=== PATIENT | male | born 1940 | race Caucasian/White ===

== ENCOUNTER 2017-09-21 11:24 | Inpatient (IN) | payer OTHER ==
[~2017-09-21] VITALS: Ht 175.3 cm; Wt 96.8 kg
--- NOTE | ~2017-09-21 | 2DMMODE ---
[facility] [address] [place] [address] 2 D/M-MODE ECHOCARDIOGRAM Name: ELHAM CORTEZ Room #: 216-P [facility] IN .R.#: [id number] Admission: 09/21/17 Attend Phys: Heather Macario Discharge: Date of : 44 Date of Service: 09/21/17 1619 Report #: [id number] THIS REPORT FOR: //name// APPROVED REPORT Study performed: 09/21/2017 14:32:48 EXAM: Comprehensive 2D, Doppler, and color-flow Echocardiogram Patient Location: Echo lab Room #: [facility] Status: routine BSA: 2.17 HR: 125 bpm BP: 91/60 mmHg Other Information Study Quality: Good Indications Atrial Fibrillation Hypertension/HDD 2D Dimensions RVDd: 46.18 mm LVEF(%): 75.70 (>50%) IVSd: 11.87 (7-11mm) LVOT Diam: 24.09 (18-24mm) LVDd: 46.55 mm PWd: 12.46 (7-11mm) Ascending Ao: 35.00 (22-36mm) LVDs: 25.88 (25-40mm) Aortic Root: 28.92 mm IVC: 11.00 mm Marina's LVEF: 75.70 % Volumes Left Atrial Volume (Systole) Single Plane 4CH: 109.48 mL Single Plane 2CH: 101.47 mL LA ESV Index: 51.00 mL/m2 Aortic Valve AoV Peak Gilemr.: 1.16 m/s AO Peak Gr.: 5.41 mmHg LVOT Max P.97 mmHg LVOT Max V: 0.86 m/s YAZ Vmax: 3.37 cm2 Pulmonary Valve PV Peak Gilmer.: 1.05 m/s PV Peak Gr.: 4.37 mmHg [facility] [place] [address] 2 D/M-MODE ECHOCARDIOGRAM Name: ELHAM CORTEZ Room #: 216-P [facility] IN ..#: [id number] Admission: 09/21/17 Attend Phys: Heather Macario Discharge: Date of : 44 Date of Service: 09/21/17 1619 Report #: [id number] Tricuspid Valve TR Peak Gilmer.: 2.27 m/s TR Peak Gr.: 20.60 mmHg PA Pressure: 26.00 mmHg Left Ventricle The left ventricle is normal size. There is normal LV segmental wall motion. Mild concentric left ventricular hypertrophy. The left ventricular systolic function is normal. The left ventricular ejection fraction is within the normal range. LVEF is 55-60%. This study is not technically sufficient to allow evaluation of the LV diastolic function due to atrial fibrillation. Right Ventricle The right ventricle is normal size. The right ventricular systolic function is normal. Atria Left atrium is dilated. Right atrium is dilated. Aortic Valve The aortic valve is normal in structure. Aortic valve is calcified. No aortic regurgitation is present. There is no aortic valvular stenosis. Mitral Valve The mitral valve is normal in structure. Mild mitral regurgitation. No evidence of mitral valve stenosis. Tricuspid Valve The tricuspid valve is normal in structure. There is trace tricuspid regurgitation. Estimated PAP 26 mmHg. Pulmonic Valve The pulmonary valve is normal in structure. There is no pulmonic valvular regurgitation. Great Vessels The aortic root is normal in size. IVC is normal in size and collapses >50% with inspiration. Pericardium There is no pericardial effusion. <Conclusion> The left ventricle is normal size. [facility] [address] [place] [address] 2 D/M-MODE ECHOCARDIOGRAM Name: ELHAM CORTEZ Gildardo Room #: 216-P [facility] IN ..#: [id number] Admission: 09/21/17 Attend Phys: Heather Macario Discharge: Date of : 44 Date of Service: 09/21/179 Report #: [id number] Mild concentric left ventricular hypertrophy. The left ventricular systolic function is normal. The right ventricle is normal size. Left atrium is dilated. Right atrium is dilated. There is no aortic valvular stenosis. Mild mitral regurgitation. There is trace tricuspid regurgitation. Estimated PAP 26 mmHg. <ELECTRONICALLY SIGNED> By: Aubrey Samuel MD 09/21/171618 18 18 Aubrey Samuel MD /DANE
--- NOTE | ~2017-09-21 | EKG ---
[place] [address] [facility] [employer] [place] [address] ELECTROCARDIOGRAM REPORT Name: DIEGO,ELHAM Ewing Room #: 216-P ADM IN M.R.#: [id number] Admission: 09/21/17 Attend Phys: Demetrio Yost MD Discharge: Date of : 44 Report #: [id number] THIS REPORT FOR: //name// [facility] ED Test Date: 2017-09-21 Test Time: 11:37:31 Pat Name: ELHAM CORTEZ Department: Room: Gender: M Test Borer: JAELYNFREDI : 1940 Requested By: Lisa Chand Order Number: [id number] MD: Aubrey Samuel Measurements Intervals [place] Rate: 128 P: -82 [place]: 123 QRS: -7 QRSD: 93 T: 56 QT: 284 QTc: 415 Interpretive Statements Sinus or ectopic atrial tachycardia Inferior infarct, old Compared to ECG 12/10/2008 14:28:54 Myocardial infarct finding now present Sinus bradycardia no longer present Atrial abnormality no longer present Electronically Signed On 09-21-2017 17:25:32 CDT by Aubrey Samuel [email or web address] <ELECTRONICALLY SIGNED> By: Aubrey Samuel MD 09/21/17 1725 1137 1137 Aubrey Samuel MD /EPI
--- NOTE | ~2017-09-21 | HC ---
[facility] [place] [address] CONSULTATION Name: DIEGOELHAM Gildardo Room #: 216-P [facility] IN ..#: [id number] Admission: 09/21/17 Attend Phys: Demetrio Yost MD Discharge: 09/24/17 Date of : 44 Report #: [id number] THIS REPORT FOR: //name// CC: Gagan Yost DATE OF SERVICE: 09/21/2017 HISTORY OF PRESENT ILLNESS: This is a 77-year-old male patient who was evaluated by me for an episode of garbled speech. 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 He became sweaty. He has severe garbled speech. It lasted a few minutes and then it resolved by itself. He had generalized weakness but not any focal weakness associated with this. REVIEW OF SYSTEMS: Indicate he has atrial fibrillation. His rate is being controlled by Cardiology. They have started him on Eliquis recently. Review of systems is positive for diabetes, but he does not become hypoglycemic. In fact, he is only on metformin. He does have a stable hypertension. His last HDL was low. Otherwise presently, he is not complaining of any new eye, ENT, respiratory, GI, , musculoskeletal, constitutional, dermatological, hematological, psychiatric, throat or allergic symptoms associated with present symptomatology. PAST MEDICAL HISTORY: Positive for atrial fibrillation and he has been recently started on Eliquis as I understand. FAMILY HISTORY: Negative for early age stroke. SOCIAL HISTORY: He does not smoke or drink any alcohol. PHYSICAL EXAMINATION: NEUROLOGICAL: Indicate that he is alert and responsive. His speech, concentration, fund of knowledge and memory is at his baseline. Cranial nerve examination 2 through 12 is unremarkable. The patient has symmetrical strength, sensation, reflexes and tone in all 4 extremities. Reflexes are difficult to check because he does have a brace on the left knee. I could not look at the fundus. There is no cerebellar sign. According to the nurses and the patient, he has been able to stand and that portion is back to his baseline. GENERAL: He is a well-developed individual who does not have any dysmorphic features of eyes, ears and face. HEENT: His vision and hearing looks adequate. CARDIAC: Examination showed atrial fibrillation. LUNGS: He does not have any respiratory difficulty or rhonchi on either side. EXTREMITIES: He has no edema, cyanosis or jaundice. He has some discoloration of his leg. VITAL SIGNS: His blood pressure is 113/69, pulse is 125 and temperature is [facility] [address] [place] [address] CONSULTATION Name: ELHAM CORTEZ Room #: 216-P [facility]#: [id number] Admission: 09/21/17 Attend Phys: Demetrio Yost MD Discharge: 09/24/17 Date of : 44 Report #: [id number] 97.8. LABORATORY DATA: Indicate a white count of 9.6 but his estimated GFR is only 25. He is going to see renal. His potassium is 5.3. RADIOLOGICAL DATA: He did have an MRI of the brain and MRA. Those were reviewed and they were unremarkable. IMPRESSION: 1. Transient ischemic attack. 2. He has no intracranial or extracranial disease. That would indicate that the symptoms were either because of vasospasms or because of systemic or cardiac problems. RECOMMENDATIONS: I do not believe there is any neurological intervention needed at this time. I discussed that aspect with him and if he is going to be on anticoagulation, he should continue that and his lipid profile is ordered and a few other blood tests are ordered. I will get an EEG just because no other cause has been found, but I do not have any further recommendations and he need to take care of his vascular risk factor, his atrial fibrillation and those can be checked. Thank you very much for this referral. I do not plan to follow up this patient, but please let me know if he has any further symptoms and I will be happy to follow him up. <ELECTRONICALLY SIGNED> By: Clarence Lynch MD 09/24/17 1422 1820 2215 Clarence Lynch MD /nt
--- NOTE | ~2017-09-21 | TEE ---
[facility] [place] [address] TRANSESOPHAGEAL ECHOCARDIOGRAM Name: ELHAM CORTEZ Room #: 216-P [facility] IN M.R.#: [id number] Admission: 09/21/17 Attend Phys: Heather Macario Discharge: Date of : 44 Date of Service: 09/23/17 0940 Report #: [id number] THIS REPORT FOR: //name// APPROVED REPORT Study performed: 09/23/2017 08:39:40 EXAM: Comprehensive 2D, Doppler, and color-flow Echocardiogram Patient Location: [facility] Room #: 216 Status: routine BSA: 2.12 HR: 134 bpm BP: 132/102 mmHg Rhythm: Atrial Fibrillation Other Information Study Quality: Good Indications Atrial Fibrillation Cardioversion Procedure After obtaining informed consent, patient underwent transesophageal echo in the [employer]. Type of Sedation : Conscious Sedation Sedation was administered by Ebony Wills RN. Sedation was achieved intravenously with: Versed (6) Fentanyl (75) Transesophageal probe was inserted and advanced into esophagus without difficulty by Major Singh MD. The DARYN was performed without complications. Synchronized Cardioversion acheived with 20 Joules after 1 attempt(s). Rhythm following Synchronized Cardioversion: Normal Sinus Rhythm Throughout the procedure, the blood pressure, pulse oximetry, cardiac rhythm, and rate were monitored. The patient tolerated the procedure without adverse effects. Recovery from conscious sedation was uneventful and vital signs were stable. Left Ventricle The left ventricle is normal size. Concentric left ventricular [facility] [address] [place] [address] TRANSESOPHAGEAL ECHOCARDIOGRAM Name: ELHAM CORTEZ Room #: 216-P [facility] IN ..#: [id number] Admission: 09/21/17 Attend Phys: Heather Macario Discharge: Date of : 44 Date of Service: 09/23/17 0940 Report #: [id number] hypertrophy is noted. Left ventricular systolic function is normal. LVEF is 55%. Right Ventricle The right ventricle is normal size. The right ventricular systolic function is normal. Atria Left atrium is dilated. No thrombus is visualized in the left atrium or appendage. No shunting by contrast bubble injection Right atrium is dilated. Aortic Valve The aortic valve is sclerotic. No aortic regurgitation is present. There is no aortic valvular stenosis. Mitral Valve The mitral valve is normal in structure. No mitral regurgitation. Tricuspid Valve The tricuspid valve is normal in structure. Trace tricuspid regurgitation. Pulmonic Valve The pulmonary valve is normal in structure. Great Vessels The aortic root is normal in size. Pericardium There is no pericardial effusion. <Conclusion> Left ventricular systolic function is normal. LVEF is 55%. Both atria are mildly dilated. No thrombus is visualized in the left atrium or appendage. No shunting by contrast bubble injection The aortic valve is sclerotic. No aortic regurgitation or stenosis The mitral valve is normal in structure. No mitral regurgitation. There is no pericardial effusion. Mild aortic atherosclerosis [facility] [address] [place] [address] TRANSESOPHAGEAL ECHOCARDIOGRAM Name: ELHAM CORTEZ Room #: 216-P [facility] IN ..#: [id number] Admission: 09/21/17 Attend Phys: Heather Macario Discharge: Date of : 44 Date of Service: 09/23/17939 Report #: [id number] Successful cardioversion of atrial flutter with single synchronous shock <ELECTRONICALLY SIGNED> By: Major Singh MD, FACC 09/23/17939 9 9 Major Singh MD, FACC /INF
--- NOTE | ~2017-09-21 | EKG ---
[address] [address] ELECTROCARDIOGRAM REPORT Name: DIEGOELHAM MILLER Room #: 216-P ADM IN M.R.#: [id number] Admission: 09/21/17 Attend Phys: Demetrio Yost MD Discharge: Date of : 44 Report #: [id number] THIS REPORT FOR: //name// [facility] Test Date: 2017-09-23 Test Time: 09:29:30 Pat Name: ELHAM CORTEZ Department: Room: 216 P Gender: M Shot Peening Operator: Juan WALDEN : 1940 Requested By: Major Singh Order Number: [id number] MD: Ralph Faust Measurements Intervals [place] Rate: 60 P: 10 CT: 180 QRS: -10 QRSD: 91 T: 51 QT: 365 QTc: 365 Interpretive Statements Sinus rhythm Compared to ECG 09/21/2017 11:37:31 Myocardial infarct finding no longer present Electronically Signed On 09-23-2017 13:08:32 CDT by Ralph Faust [email or web address] <ELECTRONICALLY SIGNED> By: Ralph Faust MD 09/23/17 1308 0929 0929 Ralph Faust MD /TINY
--- NOTE | ~2017-09-21 | H ---
[facility] [place] [address] HISTORY AND PHYSICAL Name: ELHAM CORTEZ Room #: 216-P ADM IN M.R.#: [id number] Admission: 09/21/17 Attend Phys: Demetrio Yost MD Discharge: Date of : 44 Report #: [id number] THIS REPORT FOR: //name// CC: Gagan Yost DATE OF SERVICE: 09/21/2017 CHIEF COMPLAINT: Slurred speech and aphasia. HISTORY OF PRESENT ILLNESS: The patient is a 77-year-old male with history of atrial fibrillation status post ablation in 2010, was referred from Dr. Faust's office for a possible stroke. The patient had ablation in 2010 and has been apparently doing well until a week ago when he started having severe palpitation. The patient was referred by Dr. Leal to Dr. Faust's office for evaluation. The patient was on Cardizem 360 mg once a day as needed prior to 1 week. Apparently, he has been taking his Cardizem 360 mg every day. He has also been on Eliquis for his AFib. In Dr. Faust's office, when Dr. Faust entered the room, the patient had slurred speech. The episode lasted for around 10 minutes and it resolved on arrival to the Emergency Room. The patient has been asymptomatic since then. His CAT scan of the brain showed no acute abnormality, no visual disturbance. The patient denies any focal numbness or weakness of the extremity. The patient was started on Eliquis around 4 days ago. PAST MEDICAL HISTORY: Significant for hypertension, diabetes. History of atrial fibrillation status post ablation in 2010. No history of known coronary artery disease, no CVA, no peptic ulcer disease, no bleeding disorder, no cancer. PAST SURGICAL HISTORY: History of cardiac catheterization in 2007, history of left rotator cuff surgery, history of cholecystectomy. ALLERGIES: No known drug allergies. SOCIAL HISTORY: No smoking, alcohol abuse, or illicit drug abuse. FAMILY HISTORY: Significant for hypertension. No diabetes. REVIEW OF SYSTEMS: CONSTITUTIONAL: No fever or chills. No weight loss or weight gain. EYES: No change in vision. THROAT: Denies any sore throat. CARDIOVASCULAR: Palpitation. No chest pain, no shortness of breath, no dizziness. RESPIRATORY: No cough or expectoration. [facility] [address] [place] [address] HISTORY AND PHYSICAL Name: ELHAM CORTEZ Gildardo Room #: 216-P [facility] IN .R.#: [id number] Admission: 09/21/17 Attend Phys: Demetrio Yost MD Discharge: Date of : 44 Report #: [id number] GASTROINTESTINAL: No nausea or vomiting. GENITOURINARY: No dysuria, hematuria. NEUROLOGIC: No focal numbness or weakness of the extremity. The 12-point review of system is negative other than the positive and negative dictated in the history of present illness and the review of system. PHYSICAL EXAMINATION: VITAL SIGNS: Reveal blood pressure 91/60, heart rate of 110 per minute, afebrile. GENERAL: The patient is awake, alert, not in acute respiratory distress. EYES: Pupils equal, reactive to light. Nonicteric conjunctivae. THROAT: Appears normal. NECK: Supple. JVD noted. No bruit, no lymphadenopathy. CARDIOVASCULAR SYSTEM: S1, S2. Tachycardic, irregularly irregular. CHEST: Bilateral air entry present. Clear on auscultation. ABDOMEN: Soft, bowel sounds present, no mass, no organomegaly, no tenderness. PERIPHERY: No pedal edema. No calf tenderness. Dorsalis pedis 1+. NEUROLOGICAL: Pupils equal, reactive to light. Extraocular movements intact. No facial asymmetry noted. Power is 5/5 in upper and lower extremity, no obvious sensory deficit noted. LABORATORY DATA: Reviewed. EKG showed atrial flutter/AFib, no significant ST segment T-wave changes. CT of the brain showed no acute intracranial process, mild supratentorial white matter disease suggestive of small vessel disease. BUN and creatinine are elevated at 41 and 2.5. Potassium is 5.3. Glucose is 142. White count is normal with normal hemoglobin and hematocrit and platelets. Chest x-ray is pending. ASSESSMENT AND PLAN: 1. Episode of slurred speech that has resolved, likely transient ischemic attack. The patient will be admitted to telemetry floor. We will have serial neurological evaluation. We will obtain MRI of the brain, echocardiogram. The patient apparently had a carotid Doppler done last week. We will try to obtain the report. Dr. Lynch has been consulted. 2. Atrial fibrillation with rapid ventricular response, presently on a Cardizem drip. The patient also was given a dose of digoxin in the Emergency Room. Cardiology has been consulted. We will obtain echocardiogram. We will check on his TSH level. 3. Deep venous thrombosis prophylaxis. The patient is on Eliquis for his atrial fibrillation. 4. Renal failure, most likely chronic kidney disease. The patient is not aware about any kidney disease in the past. We will try to obtain his lab results from Dr. Mercedes's office, which were done in 07/2017. We will also consult cuffing machine operator. 5. We will obtain a UA. 6. Diabetes. We will hold off metformin secondary to his renal failure. We [address] [address] HISTORY AND PHYSICAL Name: ELHAM CORTEZ Room #: 216-P [facility] IN ..#: [id number] Admission: 09/21/17 Attend Phys: Demetrio Yost MD Discharge: Date of : 44 Report #: [id number] him on Accu-Cheks and monitor his blood sugar. 7. Mild hyperkalemia, potassium of 5.3. We will repeat in the morning. 8. History of dyslipidemia, on statin. We will continue the statin, check his lipids in the morning. <ELECTRONICALLY SIGNED> By: Demetrio Yost MD 09/22/17 1300 1346 1509 Demetrio Yost MD /nt
--- NOTE | ~2017-09-21 | EEG ---
[facility] [place] [address] ELECTROENCEPHALOGRAM Name: ELHAM CORTEZ Room #: 216-P [facility] IN M.R.#: [id number] Admission: 09/21/17 Attend Phys: Demetrio Yost MD Discharge: 09/24/17 Date of : 44 Report #: [id number] THIS REPORT FOR: //name// CC: Gagan Yost DATE OF SERVICE: 09/22/2017 This patient had an episode of speech difficulty. EEG was done by placing the electrode by standard 10-20 system of electrode placement. Both referential and sequential montages were used for recording. Background activity in this patient's EEG is about 10-11 Hz and 30 microvolts. The patient went to sleep that is associated with bilateral slowing and vertex sharp waves. Photic stimulation is unremarkable. Throughout the record, no active epileptiform activity was noticed. IMPRESSION: This patient's EEG is within normal limit. Thank you very much for this referral. <ELECTRONICALLY SIGNED> By: Clarence Lynch MD 09/24/17 1424 1438 1446 Clarence Lynch MD /nt
--- NOTE | ~2017-09-21 | EKG ---
[place] [address] [facility] [place] [address] ELECTROCARDIOGRAM REPORT Name: DIEGOELHAM MILLER Room #: 216-P ADM IN M.R.#: [id number] Admission: 09/21/17 Attend Phys: Demetrio Yost MD Discharge: Date of : 44 Report #: [id number] THIS REPORT FOR: //name// [facility] Test Date: 2017-09-24 Test Time: 06:38:33 Pat Name: ELHAM CORTEZ Department: Room: 216 P Gender: M Internal Controls Manager: GR : 1940 Requested By: Maria Luz Dela Cruz Order Number: [id number] MD: Major Singh Measurements Intervals [place] Rate: 75 P: -24 [place]: 186 QRS: -22 QRSD: 99 T: 33 QT: 359 QTc: 401 Interpretive Statements Sinus rhythm Borderline left axis deviation Baseline wander in lead(s) V4,V6 Compared to ECG 09/23/2017 09:29:30 No significant changes Electronically Signed On 09-24-2017 8:19:48 CDT by Major Singh [email or web address] <ELECTRONICALLY SIGNED> By: Major Singh MD, [facility] 09/24/17 0819 7 Major Singh MD, [facility] /EPI
--- NOTE | ~2017-09-21 | HC ---
[facility] [place] [address] CONSULTATION Name: ELHAM CORTEZ Room #: 216-P [facility] IN .R.#: [id number] Admission: 09/21/17 Attend Phys: Demetrio Yost MD Discharge: Date of : 44 Report #: [id number] THIS REPORT FOR: //name// CC: Gagan Mercedes Demetrio Yost DATE OF SERVICE: 09/21/2017 NEPHROLOGY CONSULTATION ATTENDING PHYSICIAN: Demetrio Yost MD REASON FOR CONSULTATION: Elevated creatinine. HISTORY OF PRESENT ILLNESS: A 77-year-old gentleman, he has had diabetes and recurrent atrial fibrillation in 2010, he underwent an ablation. As far as he knows, he has had normal renal function until an episode of septic gallbladder at [facility] 2 years ago, which did not require dialysis, but it was a prolonged bout of acute renal failure eventually as far as the patient knows his kidney function normalized. The patient has now had recurrence of atrial arrhythmia with difficulty in controlling rate and he was referred today for another ablation while visiting with the electrophysiology court bailiff, developed garbled speech, lasted only 5 minutes and resolved, felt to be a TIA. He was admitted and his creatinine was up to 2.5 with a BUN of 41. We have no old records of his creatinine. Potassium was 5.3. HOME MEDICATIONS: Include carvedilol 25 mg b.i.d., Eliquis 5 mg b.i.d., metformin 1000 mg b.i.d., Myrbetriq 50 mg daily, aspirin 81 mg daily, lisinopril/hydrochlorothiazide 20/12.5 one tab daily, simvastatin 20 mg daily, and fenofibrate 150 mg daily. SOCIAL HISTORY: No cigarettes or alcohol use. REVIEW OF SYSTEMS: GENERAL: He has been feeling well. EYES: No problem with his vision. ENT: Hearing okay, swallows okay. No mouth sores. ENDOCRINE: Positive for diabetes. RESPIRATORY: No shortness of breath, pleuritic pain, hemoptysis, cough. CARDIAC: No chest pain. He does have the palpitations. No history of heart failure. GASTROINTESTINAL: No nausea, vomiting or diarrhea. GENITOURINARY: He does have some difficulty with urination, some frequency. NEUROLOGIC: He has got the episode as above, no other. No symptoms of [facility] [address] [facility] [address] CONSULTATION Name: ELHAM CORTEZ Room #: 216-P [facility] IN ..#: [id number] Admission: 09/21/17 Attend Phys: Demetrio Yost MD Discharge: Date of : 42 Report #: [id number] peripheral neuropathy. SKIN: No skin rash. FAMILY HISTORY: Positive for lung cancer. PHYSICAL EXAMINATION: GENERAL: This is a reasonably well-appearing gentleman, in good spirits, seen in his hospital bed. SKIN: Unremarkable except for some dry skin over the yi areas bilaterally. SKELETAL: Well developed, well nourished, nonobese. HEENT: Extraocular movements are full. Vision intact with corrective lenses. No scleral icterus. Hearing intact. Mucous membranes moist. Tongue, buccal mucosa benign. NECK: Neck veins supple. Neck veins are not distended. CHEST: Shows crackles at the lung bases. HEART: Regular, but very rapid. ABDOMEN: Soft and nontender. EXTREMITIES: Show no edema. Distal pulses are somewhat diminished. LABORATORY DATA: Creatinine is 2.5, potassium 5.3, BUN 41. Hemoglobin 15.2. ASSESSMENT AND PLAN: 1. Elevated creatinine. This is certainly due to his atrial arrhythmias, it could be superimposed on some prior renal damage, particularly as regards his previous episode of septic gallbladder and acute renal failure at [facility] 2 years ago. In any event, urinalysis, urine protein studies, renal sonography and paraprotein studies are all ordered for completeness. I do believe that if anything he is tending towards volume overload, he has already been getting some IV fluids, I am a little concerned about that, we will cut those back before he goes into a heart failure. He has had bolus of saline. He got saline I think at least a liter on top of the 500 mL bolus. Now, I believe the IV fluids have been appropriately stopped and he is of course being treated for rate control, etc. and then worked up for possible transient ischemic attack. 2. Atrial fibrillation/flutter with rapid ventricular response and low blood pressure. 3. Diabetes mellitus. 4. Previous history of septic gallbladder with acute tubular necrosis. By: [id number] 2346 Elmer Pitts MD /nt
[2017-09-21 11:27] VITALS: BP 101/72
[2017-09-21] MEDS ORDERED: ELIQUIS5 MG PO (11:34)
[2017-09-21 11:57] LABS: HEMOGLOBIN 15.2 gm/dL (14.0-18.0); MCH 32.6 pg (26.0-34.0); MCHC 34.6 g/dL (28.0-37.0); MCV 94.3 fL (80.0-100.0); PLATELET COUNT 261 thou/uL (150-400); RBC 4.67 mil/uL (4.50-6.00); WBC 9.6 thou/uL (4.0-11.0)
[2017-09-21 12:04] LABS: CALCIUM 9.2 mg/dL (8.5-10.1); CREATININE 2.5 mg/dL (0.7-1.3); POTASSIUM 5.3 mmol/L (3.5-5.1)
[2017-09-21] MEDS ORDERED: COREG25 MG PO (12:24)
[2017-09-21 12:43] VITALS: BP 91/60
[2017-09-21] MEDS ORDERED: METFORMIN HCL500 MG PO (12:43)
[2017-09-21] MEDS ORDERED: MYRBETRIQ50 MG PO (12:43)
[2017-09-21] MEDS ORDERED: ZESTORETIC 20-1 EAC3 PO (12:44)
[2017-09-21] MEDS ORDERED: ASPIR 8181 MG PO (12:44)
[2017-09-21] MEDS ORDERED: ZOCOR20 MG PO (12:45)
[2017-09-21] MEDS ORDERED: LIPOFEN150 MG PO (12:45)
[2017-09-21 12:57] LABS: ATYPICAL LYMPHS 5 %
[2017-09-21 13:50] VITALS: BP 91/47
[2017-09-21 15:48] VITALS: BP 106/63
[2017-09-21 19:49] LABS: URINE BILIRUBIN NEGATIVE (Negative); URINE BLOOD 2+ (Negative); URINE CLARITY CLEAR; URINE COLOR YELLOW; URINE GLUCOSE-RANDOM* NEGATIVE (Negative); URINE KETONES NEGATIVE (Negative); URINE LEUKOCYTES-REFLEX NEGATIVE (Negative); URINE NITRITE-REFLEX NEGATIVE (Negative); URINE PROTEIN (DIPSTICK) NEGATIVE (Negative); URINE UROBILINOGEN 0.2 E.U./dl (0.2-1.0)
[2017-09-21 20:00] LABS: CASTS None Seen /LPF (None Seen); MUCUS 0-3 Light strn/LPF (None Seen); SQUAMOUS 0-3 Few /LPF (0-3); URINE RBC 3-10 Few /HPF (0-2); URINE WBC-REFLEX 0-5 Rare /HPF (0-5)
[2017-09-21 20:01] LABS: BACTERIA-REFLEX 1-9 Few /HPF (None Seen); CRYSTALS None Seen /LPF (None Seen)
[2017-09-21 20:03] LABS: PROT/CREAT RATIO 0.1; URINE CREATININE-RANDOM* 98.6 mg/dL; URINE PROTEIN-RANDOM* 12.5 mg/dL (<11.9)
[2017-09-21 20:05] VITALS: BP 96/57
[2017-09-22] VITALS (7 sets, daily range): BP systolic 97–133; BP diastolic 60–75
[2017-09-22 04:07] LABS: HEMATOCRIT 40.6 % (42.0-52.0); HEMOGLOBIN 13.9 gm/dL (14.0-18.0); MCH 32.2 pg (26.0-34.0); MCHC 34.3 g/dL (28.0-37.0); MCV 93.9 fL (80.0-100.0); PLATELET COUNT 196 thou/uL (150-400); RBC 4.33 mil/uL (4.50-6.00); RDW 13.1 % (10.5-14.5); WBC 7.3 thou/uL (4.0-11.0)
[2017-09-22 04:19] LABS: ANION GAP 9 mmol/L (7-16); BUN 40 mg/dL (7-18); CALCIUM 8.9 mg/dL (8.5-10.1); CHLORIDE 106 mmol/L (98-107); CO2 25 mmol/L (21-32); GLUCOSE 102 mg/dL (74-106); MAGNESIUM 1.5 mg/dL (1.8-2.4); POTASSIUM 4.5 mmol/L (3.5-5.1); SODIUM 140 mmol/L (136-145)
[2017-09-22 04:20] LABS: SERUM ASSESSMENT Clear
[2017-09-22 04:39] LABS: CHOLESTEROL 91 mg/dL (<200); HDL CHOLESTEROL 19 mg/dL (>40); LDL CHOLESTEROL 38 mg/dL (<100); TC:HDL 4.8 Ratio (Not establshd); TRIGLYCERIDE 172 mg/dL (<150); VLDL 34 mg/dL (<40)
[2017-09-22 07:17] LABS: ABSOLUTE NEUTROPHILS 3.9 thou/uL (1.4-8.2)
[2017-09-23] VITALS (7 sets, daily range): BP systolic 122–142; BP diastolic 65–102
[2017-09-23 03:25] LABS: ALBUMIN 3.7 g/dL (3.4-5.0); CALCIUM 8.7 mg/dL (8.5-10.1); CREATININE 1.6 mg/dL (0.7-1.3); MAGNESIUM 1.4 mg/dL (1.8-2.4); PHOSPHORUS 3.1 mg/dL (2.5-4.9); POTASSIUM 4.2 mmol/L (3.5-5.1)
[2017-09-24 03:34] VITALS: BP 142/75
[2017-09-24 05:04] LABS: CALCIUM 8.7 mg/dL (8.5-10.1); CREATININE 1.4 mg/dL (0.7-1.3); MAGNESIUM 1.5 mg/dL (1.8-2.4)
[2017-09-24 07:50] VITALS: BP 158/93
[2017-09-24] MEDS ORDERED: ALTACE5 MG PO (08:25)
[2017-09-24] MEDS ORDERED: FLECAINIDE ACET50 M1 PO (08:25)
[2017-09-24] MEDS ORDERED: CARVEDILOL12.5 MG PO (08:25)
[2017-09-24] MEDS ORDERED: JANUVIA50 MG PO (10:46)
[2017-09-24 11:02] VITALS: BP 158/93
== END 2017-09-24 13:35 | disposition home or self-care (01) | DRG 682 ==
LOC: ER 11:24 → EROBS 12:30 → 2N 12:30 → ENTRNSPT 09-24 11:48 → EDTRNSPTSTS 09-24 11:50 → 2N 09-24 13:35
PROVIDERS: Emergency Medicine; Hospitalist; Internal Medicine; Internal Medicine Nephrology
PROC: 4A10X4Z Monitoring of Central Nervous Electrical Activity, External Approach (ICD-10-PCS; 2017-09-21)
PROC: B24BZZ4 Ultrasonography of Heart with Aorta, Transesophageal (ICD-10-PCS; principal; 2017-09-23)
PROC: 5A2204Z Restoration of Cardiac Rhythm, Single (ICD-10-PCS; principal; 2017-09-23)
DX: N17.9 Acute kidney failure, unspecified (principal); E43 Unspecified severe protein-calorie malnutrition; G45.9 Transient cerebral ischemic attack, unspecified; I48.92 Unspecified atrial flutter; I95.9 Hypotension, unspecified; E87.5 Hyperkalemia; E78.5 Hyperlipidemia, unspecified; I48.0 Paroxysmal atrial fibrillation; I25.10 Atherosclerotic heart disease of native coronary artery without angina pectoris; N18.9 Chronic kidney disease, unspecified; E11.22 Type 2 diabetes mellitus with diabetic chronic kidney disease; I12.9 Hypertensive chronic kidney disease with stage 1 through stage 4 chronic kidney disease, or unspecified chronic kidney disease; E86.0 Dehydration; Z90.49 Acquired absence of other specified parts of digestive tract; Z79.01 Long term (current) use of anticoagulants; Z68.31 Body mass index [BMI] 31.0-31.9, adult; Z79.82 Long term (current) use of aspirin; Z79.84 Long term (current) use of oral hypoglycemic drugs; Z79.899 Other long term (current) drug therapy; Z80.1 Family history of malignant neoplasm of trachea, bronchus and lung; Z82.49 Family history of ischemic heart disease and other diseases of the circulatory system
CPT/HCPCS: 10194

== ENCOUNTER → 2017-11-09 | Outpatient (CLI) | payer OTHER ==
[~2017-11-09] MED LIST: ALTACE5 MG PO; ASPIR 8181 MG PO; CARVEDILOL12.5 MG PO; COREG25 MG PO; ELIQUIS5 MG PO; FLECAINIDE ACET50 M1 PO; JANUVIA50 MG PO; LIPOFEN150 MG PO; METFORMIN HCL500 MG PO; MYRBETRIQ50 MG PO; ZESTORETIC 20-1 EAC3 PO; ZOCOR20 MG PO
[2017-11-09 08:21] LABS: HEMATOCRIT 46.3 % (42.0-52.0); HEMOGLOBIN 15.4 gm/dL (14.0-18.0); MCHC 33.2 g/dL (28.0-37.0); MCV 96.4 fL (80.0-100.0); RBC 4.8 mil/uL (4.50-6.00); RDW 13.4 % (10.5-14.5); WBC 6.9 thou/uL (4.0-11.0)
[2017-11-09 08:36] LABS: CALCIUM 9.6 mg/dL (8.5-10.1); CREATININE 1.4 mg/dL (0.7-1.3); POTASSIUM 4.2 mmol/L (3.5-5.1)
== END ==
LOC: CAT 07:47
PROVIDERS: Internal Medicine Cardiovascular Disease
DX: I25.10 Atherosclerotic heart disease of native coronary artery without angina pectoris (principal); I48.91 Unspecified atrial fibrillation; N20.0 Calculus of kidney; M47.814 Spondylosis without myelopathy or radiculopathy, thoracic region; R59.0 Localized enlarged lymph nodes

== ENCOUNTER 2017-11-15 06:28 | Observation (INO) | payer OTHER ==
[~2017-11-15] VITALS: Ht 182.9 cm; Wt 95.3 kg
--- NOTE | ~2017-11-15 | P ---
[facility] [place] [address] PROCEDURE REPORT Name: ELHAM CORTEZ Room #: REG [facility]#: [id number] Admission: 11/15/17 Attend Phys: Ralph Faust MD Discharge: Date of : 42 Report #: [id number] THIS REPORT FOR: //name// CC: Gagan Faust PREOPERATIVE DIAGNOSIS: Atrial fibrillation. POSTOPERATIVE DIAGNOSIS: Atrial fibrillation. HISTORY OF PRESENT ILLNESS: The patient is a 77-year-old with history of AFib, status post prior ablation at [facility] about 7 years ago, who has had clinical recurrence. He is here for repeat ablation. PROCEDURES PERFORMED: 1. AFib ablation, CPT code 57017. 2. 3D mapping EP, CPT code 47916. 3. Intracardiac echo, CPT code 78042. ANESTHESIA: The patient underwent general anesthesia with no anesthesia related complications. PROCEDURE: The patient underwent informed consent where we discussed the details of the procedure including the risks, which include, but not limited to bleeding, vascular damage, cardiac perforation as well as stroke or NE. The patient understood these risks and is willing to proceed. The patient was brought to the EP laboratory in a fasting and sedated state and prepped and draped in a sterile fashion. Next, I obtained access to the bilateral femoral veins placing two 8-Welsh short sheaths in the right femoral vein and a 7-Welsh and 9-Welsh short sheath in the left femoral vein using the modified Seldinger technique. Next, under fluoroscopy, I placed a decapolar catheter easily in the coronary sinus and an ice catheter in the right atrium. Next, I created a detailed 3D geometry of the left atrium using CartoSound. There was evidence of a left superior and left inferior pulmonary vein as well as a right superior and right inferior pulmonary vein. Of note, the interatrial septum appeared to be thickened. Next, the patient was systemically heparinized and a transseptal was attempted using an SL1 sheath and a [place] needle. On my first three attempts using the [place] needle, the needle appeared to cross into the left atrium, but I could not advance my dilator. The septum was thickened and probably calcified. I therefore decided to perform a transseptal at the higher part of the interatrial septum. Performing the transseptal at this site, I was able to cross with the SL1 sheath into the left atrium. Then, I placed a Lasso catheter in the left atrium and we obtain baseline measurements of the left atrium. It appeared that the left superior, left inferior and the right inferior pulmonary veins have reconnected, the right superior remained isolated from prior ablation. Next, I attempted to exchange the SL1 sheath for the [address] [address] PROCEDURE REPORT Name: ELHAM CORTEZ Room #: REG [facility] Marlon#: [id number] Admission: 11/15/17 Attend Phys: Ralph Faust MD Discharge: Date of : 42 Report #: [id number] cryosheath, but this would not cross despite trying to turn it through the septum. As such, we exchanged back for the SL1 sheath and then advanced a Cordis 7 mm x 4 cm balloon over the wire across the interatrial septum and we balloon dilated the septum. I then exchanged the SL1 for the cryosheath and this now easily crossed into the left atrium. Next, I placed the cryoballoon into the left atrium. We started by isolating the left superior pulmonary vein. Of note, this had somewhat of a strange anatomy as I could not really get the wire very deep down into it. This was clearly the left superior pulmonary vein and not the appendage. This vein did isolate after one freeze. This freeze was 4 minutes' duration. I then turned my attention to the left inferior pulmonary vein. I performed two 4-minute freezes in this vein and the vein isolated within 47 seconds of the second freeze. I then turned my attention to the right superior pulmonary vein and as I discussed this was already isolated, but I decided to re-isolate the ostium of this vessel and the sharmaine. I performed a 2-minute freeze and a 140-second freeze. I then turned my attention to the right inferior pulmonary vein, which was still connected. I performed a 4-minute freeze and a 3-minute freeze and this vein was isolated. Post-ablation, I placed the Lasso catheter back to the left atrium and we created a detailed voltage map, which showed that we had created a wide circumferential ablation of the left atrium. A post-ablation EP study was performed and AV block was noted at 340 milliseconds, his sinus node recovery time was within normal limits, his AV orlin ERP was at 310 milliseconds at a [address] cycle length with double atrial extrastimuli, the patient would have some bursts of atrial fib/atrial flutter that would last about 5-10 seconds, but then terminate. As such, the procedure was concluded. Pre-ablation, the patient was in sinus rhythm with a sinus cycle length of 945 milliseconds, AK interval 180 milliseconds, QRS duration 80 milliseconds, QT interval 360 milliseconds. Post-ablation, the patient was in sinus rhythm with a sinus cycle length of 1105 milliseconds, AK interval 185 milliseconds, QRS duration 85 milliseconds, QT interval 335 milliseconds. As such, all catheters and sheaths were pulled after the patient received systemic protamine. The patient awoke neurologically and hemodynamically intact. No complications and no significant bleeding. CONCLUSIONS: 1. Successful AFib ablation with re-isolation of the left superior, left inferior and right superior pulmonary veins. 2. Persistence isolation of the right superior pulmonary vein. 3. Successful transseptal using a septoplastic technique. By: 1125 1418 Ralph Faust MD /nt
--- NOTE | ~2017-11-15 | EKG ---
[address] [address] ELECTROCARDIOGRAM REPORT Name: ELHAM CORTEZ Room #: 210-P [facility]#: [id number] Admission: 11/15/17 Attend Phys: Ralph Faust MD Discharge: 11/16/17 Date of : 42 Report #: [id number] THIS REPORT FOR: //name// [facility] Test Date: 2017-11-16 Test Time: 10:17:03 Pat Name: ELHAM CORTEZ Department: Room: [facility] Gender: M B2B Sales Consultant: Juan WALDEN : 1940 Requested By: Ursula Melgar Order Number: [id number] MD: Major Singh Measurements Intervals [place] Rate: 92 P: 0 MN: 175 QRS: -4 QRSD: 93 T: 122 QT: 337 QTc: 417 Interpretive Statements Sinus rhythm Nonspecific T abnormalities, lateral leads Compared to ECG 09/24/2017 06:38:33 T-wave abnormality now present Electronically Signed On 11-17-2017 7:48:33 CDT by Major Singh [email or web address] <ELECTRONICALLY SIGNED> By: Major Singh MD, [facility] 11/17/17 0748 1017 1017 Major Singh MD, [facility] /EPI
[~2017-11-15 06:28] MED LIST changes: +ALTACE10 MG PO; +CINNAMON3.7 ML PO; +COENZYME Q-1030 MG PO; +COREG25 M1 PO; +DIGOXIN250 MCG PO; +FENOFIBRATE160 MG PO; +FISH OIL 1,001000 M2 PO; +FLOMAX0.4 MG PO; +JANUVIA 50 MG T50 MG PO; +MAGOX 400400 MG PO; +TOVIAZ8 MG PO; +VITAMIN B-12500 MCG PO; +VITAMIN D3400 UNIT PO; +VITAMIN E400 UNIT PO; +VITAMINC500 PO
[2017-11-15 07:21] VITALS: BP 164/81
[2017-11-15 07:22] LABS: HEMATOCRIT 45.2 % (42.0-52.0); HEMOGLOBIN 15.3 gm/dL (14.0-18.0); MCH 32.5 pg (26.0-34.0); MCHC 33.7 g/dL (28.0-37.0); MCV 96.3 fL (80.0-100.0); PLATELET COUNT 182 thou/uL (150-400); RDW 13.8 % (10.5-14.5); WBC 7.9 thou/uL (4.0-11.0)
[2017-11-15 07:32] LABS: CALCIUM 9.1 mg/dL (8.5-10.1); CREATININE 1.5 mg/dL (0.7-1.3); POTASSIUM 3.7 mmol/L (3.5-5.1)
[2017-11-15 07:37] LABS: ALBUMIN 4.1 g/dL (3.4-5.0); TOTAL BILIRUBIN 0.9 mg/dL (<0.1-1.0); TOTAL PROTEIN 7.1 g/dL (6.4-8.2)
[2017-11-15] MEDS ORDERED: CINNAMON500 MG PO (07:40)
[2017-11-15 07:42] LABS: APTT 26.8 Seconds (24.5-32.8); INR 1.1
[2017-11-15] MEDS ORDERED: CO Q-10100 MG PO (07:44)
[2017-11-15 08:24] LABS: ABSOLUTE NEUTROPHILS 5.7 thou/uL (1.4-8.2); ANISOCYTOSIS SLIGHT; METAMYELOCYTES 2 %; MYELOCYTES 1 %
[2017-11-15 15:27] VITALS: BP 141/70
[2017-11-15 15:57] VITALS: BP 141/70
[2017-11-15 20:17] VITALS: BP 109/60
[2017-11-16 04:16] VITALS: BP 104/56
[2017-11-16 08:21] VITALS: BP 1236/68
[2017-11-16 11:01] VITALS: BP 99/58
[2017-11-16 16:07] VITALS: BP 142/69
[2017-11-16 17:02] VITALS: BP 142/69
[2017-11-16 18:32] VITALS: BP 142/69
== END 2017-11-16 18:33 | disposition home or self-care (01) ==
LOC: CATH 06:28 → 2N 15:33 → CATH 15:34 → ENTRNSPT 11-16 18:05 → 2N 11-16 18:33
PROVIDERS: Internal Medicine Cardiovascular Disease
DX: I48.0 Paroxysmal atrial fibrillation (principal); I48.3 Typical atrial flutter; I10 Essential (primary) hypertension; I25.10 Atherosclerotic heart disease of native coronary artery without angina pectoris; E11.9 Type 2 diabetes mellitus without complications; E78.5 Hyperlipidemia, unspecified; Z86.73 Personal history of transient ischemic attack (TIA), and cerebral infarction without residual deficits
CPT/HCPCS: 10081; 62110; 62900; 65020; 65040; 70005

== ENCOUNTER 2018-10-22 12:41 | Emergency (ER) | payer OTHER ==
[~2018-10-22] VITALS: Ht 182.9 cm; Wt 81.7 kg
[~2018-10-22 12:41] MED LIST changes: +CINNAMON500 MG PO; +CO Q-10100 MG PO
[2018-10-22 12:56] LABS: HEMATOCRIT 30.2 % (42.0-52.0); HEMOGLOBIN 10.2 gm/dL (14.0-18.0); MCH 31.6 pg (26.0-34.0); MCHC 33.8 g/dL (28.0-37.0); MCV 93.4 fL (80.0-100.0); PLATELET COUNT 246 thou/uL (150-400); RBC 3.23 mil/uL (4.50-6.00); RDW 12.9 % (10.5-14.5); WBC 10.1 thou/uL (4.0-11.0)
[2018-10-22 13:02] LABS: ANION GAP 8 mmol/L (7-16); BUN 36 mg/dL (7-18); CALCIUM 9.6 mg/dL (8.5-10.1); CHLORIDE 103 mmol/L (98-107); CO2 25 mmol/L (21-32); CREATININE 1.8 mg/dL (0.7-1.3); GLUCOSE 179 mg/dL (74-106); POTASSIUM 4.7 mmol/L (3.5-5.1); SODIUM 136 mmol/L (136-145)
[2018-10-22 13:12] LABS: ALBUMIN 3.3 g/dL (3.4-5.0); SGOT 17 U/L (15-37); SGPT 22 U/L (30-65); TOTAL BILIRUBIN 0.4 mg/dL (<0.1-1.0); TOTAL PROTEIN 6.9 g/dL (6.4-8.2); TROPONIN-I <0.06 ng/mL (<0.06)
[2018-10-22 13:14] LABS: ABSOLUTE NEUTROPHILS 7.4 thou/uL (1.4-8.2)
[2018-10-22 13:55] LABS: URINE BILIRUBIN NEGATIVE (Negative); URINE BLOOD 1+ (Negative); URINE CLARITY CLEAR; URINE COLOR YELLOW; URINE GLUCOSE-RANDOM* NEGATIVE (Negative); URINE KETONES NEGATIVE (Negative); URINE LEUKOCYTES-REFLEX NEGATIVE (Negative); URINE NITRITE-REFLEX NEGATIVE (Negative); URINE PROTEIN (DIPSTICK) NEGATIVE (Negative); URINE SPECIFIC GRAVITY 1.025 (1.005-1.035); URINE UROBILINOGEN 0.2 E.U./dl (0.2-1.0)
[2018-10-22 13:57] LABS: BACTERIA-REFLEX None Seen /HPF (None Seen); CASTS None Seen /LPF (None Seen); SQUAMOUS None Seen /LPF (0-3); URINE RBC 3-10 Few /HPF (0-2)
[2018-10-22 13:58] LABS: CRYSTALS None Seen /LPF (None Seen); URINE WBC-REFLEX 0-5 Rare /HPF (0-5)
[2018-10-22 14:07] LABS: AMP/METHAMP Negative (Negative); BARBITURATES Negative (Negative); BENZODIAZEPINES Negative (Negative); COCAINE Negative (Negative); METHADONE Negative (Negative); OPIATES Negative (Negative); PCP Negative (Negative)
[2018-10-22] MEDS ORDERED: METFORMIN HCL500 MG PO (14:22)
[2018-10-22] MEDS ORDERED: LIPOFEN150 MG PO (14:24)
[2018-10-22] MEDS ORDERED: LEXAPRO 10 MG T10 M1 PO (14:25)
[2018-10-22] MEDS ORDERED: MAGOX 400400 MG PO (14:26)
[2018-10-22 14:27] VITALS: BP 117/56
--- NOTE | 2018-10-23 15:23 | EKG ---
[place] [address] [facility] [place] [address] ELECTROCARDIOGRAM REPORT Name: DIEGO,ELHAM Gildardo 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 Chemistry: : 1940 Requested By: Tash Ann Order Number: [id number] MD: Major Singh Measurements Intervals [place] Rate: 67 P: 0 [place]: 195 QRS: 15 QRSD: 94 T: 24 QT: 376 QTc: 397 Interpretive Statements Sinus rhythm No significant abnormality Compared to ECG 11/16/2017 10:17:03 T-wave abnormality no longer present Electronically Signed On 10-23-2018 15:23:08 CDT by Major Singh [email or web address] ��������������������������������������������� <ELECTRONICALLY SIGNED> ���������������������������������������� By: Major Singh MD, [facility] ��������������������������������������������� 10/23/18 1523 1243 1243 Major Singh MD, FACC /EPI
== END 2018-10-22 14:27 | disposition home or self-care (01) ==
LOC: ER 12:41
PROVIDERS: Student in an Organized Health Care Education/Training Program
DX: T67.0XXA Heatstroke and sunstroke, initial encounter (principal); R55 Syncope and collapse; I10 Essential (primary) hypertension; E11.9 Type 2 diabetes mellitus without complications; I48.91 Unspecified atrial fibrillation; I25.10 Atherosclerotic heart disease of native coronary artery without angina pectoris; E78.5 Hyperlipidemia, unspecified; Z90.49 Acquired absence of other specified parts of digestive tract; Z90.89 Acquired absence of other organs; Z95.2 Presence of prosthetic heart valve; Z98.890 Other specified postprocedural states; X58.XXXA Exposure to other specified factors, initial encounter; Y92.89 Other specified places as the place of occurrence of the external cause; Y93.89 Activity, other specified; Y99.8 Other external cause status

== ENCOUNTER → 2019-05-17 | Outpatient (CLI) | payer OTHER ==
[~2019-05-17] MED LIST changes: +LEXAPRO 10 MG T10 M1 PO
== END ==
LOC: SJCVC 14:38
DX: I48.0 Paroxysmal atrial fibrillation (principal); E11.9 Type 2 diabetes mellitus without complications; I10 Essential (primary) hypertension; I25.10 Atherosclerotic heart disease of native coronary artery without angina pectoris; E78.5 Hyperlipidemia, unspecified; Z79.01 Long term (current) use of anticoagulants; Z79.82 Long term (current) use of aspirin; Z79.84 Long term (current) use of oral hypoglycemic drugs; Z79.899 Other long term (current) drug therapy; Z98.890 Other specified postprocedural states

== ENCOUNTER → 2020-02-06 | Outpatient (CLI) | payer OTHER | LOC: SJCVCIMAG 09:44 | PROVIDERS: ATTEND Internal Medicine Cardiovascular Disease | DX: I35.8 Other nonrheumatic aortic valve disorders (principal); I11.9 Hypertensive heart disease without heart failure; I48.0 Paroxysmal atrial fibrillation; R94.31 Abnormal electrocardiogram [ECG] [EKG]; E78.00 Pure hypercholesterolemia, unspecified; I87.2 Venous insufficiency (chronic) (peripheral); E11.9 Type 2 diabetes mellitus without complications; D68.59 Other primary thrombophilia; Z79.899 Other long term (current) drug therapy; Z86.79 Personal history of other diseases of the circulatory system ==

== ENCOUNTER → 2020-05-16 | Outpatient (CLI) | payer OTHER | LOC: SJCVC 13:35 | PROVIDERS: ATTEND Internal Medicine Cardiovascular Disease | DX: R94.31 Abnormal electrocardiogram [ECG] [EKG] (principal); I48.0 Paroxysmal atrial fibrillation; E11.9 Type 2 diabetes mellitus without complications; I10 Essential (primary) hypertension; E78.5 Hyperlipidemia, unspecified; I25.10 Atherosclerotic heart disease of native coronary artery without angina pectoris; Z90.49 Acquired absence of other specified parts of digestive tract; Z86.73 Personal history of transient ischemic attack (TIA), and cerebral infarction without residual deficits; Z98.890 Other specified postprocedural states; Z79.899 Other long term (current) drug therapy ==

== ENCOUNTER → 2020-08-21 | Outpatient (CLI) | payer OTHER | LOC: SJCVC 13:23 | PROVIDERS: ATTEND Internal Medicine Cardiovascular Disease | DX: R94.31 Abnormal electrocardiogram [ECG] [EKG] (principal); I48.0 Paroxysmal atrial fibrillation; I10 Essential (primary) hypertension; E78.00 Pure hypercholesterolemia, unspecified; I87.2 Venous insufficiency (chronic) (peripheral); E11.9 Type 2 diabetes mellitus without complications; I35.0 Nonrheumatic aortic (valve) stenosis; D68.59 Other primary thrombophilia; G45.9 Transient cerebral ischemic attack, unspecified; E78.5 Hyperlipidemia, unspecified; Z86.79 Personal history of other diseases of the circulatory system; Z79.84 Long term (current) use of oral hypoglycemic drugs; Z79.899 Other long term (current) drug therapy ==

== ENCOUNTER → 2021-04-30 | Outpatient (CLI) | payer OTHER ==
[~2021-04-30] VITALS: Ht 175.3 cm; Wt 79.4 kg
[~2021-04-30] MED LIST changes: +ARIMIDEX1 MG PO; +TAMBOCOR 100 M100 MG PO
[2021-04-30 07:49] VITALS: BP 129/86
--- NOTE | 2021-04-30 09:50 | TEE ---
[facility] [place] [address] TRANSESOPHAGEAL ECHOCARDIOGRAM Name: ELHAM CORTEZ [id number] Admission: 04/30/21 Attend Phys: Elmer Leal MD, Discharge: Date of : 42 Report #: [id number] THIS REPORT FOR: cc: Michael Canela Kent DO Santiago, Patrick MD [facility] ~ APPROVED REPORT Study performed: 04/30/2021 08:43:15 EXAM: Comprehensive 2D, Doppler, and color-flow Echocardiogram Patient Location: Out-Patient Room #: 9 Status: routine BSA: 1.95 HR: 115 bpm Rhythm: Atrial Flutter Other Information Study Quality: Good Indications Atrial flutter Echo Enhancing Agent Indication: Rule out Shunt Agent(s) / Amount(s) Used: Agitated Saline 7 cc Procedure After obtaining informed consent, patient underwent transesophageal echo in the [employer]. Type of Sedation : Conscious Sedation Sedation was administered by Nurse. Sedation start time: 847 Case end Time: 852 Sedation was achieved intravenously with: Versed (2mg) Fentanyl (50mcg) Transesophageal probe was inserted and advanced into esophagus without difficulty by Kelechi López MD. Echo enhancement indication: R/O Septal defect. Echo enhancement agent administered: Agitated Saline The DARYN was performed without complications. Synchronized Cardioversion acheived with 120 Joules after 1 [facility] [address] [place] [address] TRANSESOPHAGEAL ECHOCARDIOGRAM Name: ELHAM CORTEZ Room #: REG Marlon#: [id number] Admission: 04/30/21 Attend Phys: Elmer Leal, Discharge: Date of : 42 Report #: [id number] attempt(s). Rhythm following Synchronized Cardioversion: Sinus Bradycardia Throughout the procedure, the blood pressure, pulse oximetry, cardiac rhythm, and rate were monitored. The patient tolerated the procedure without adverse effects. Recovery from conscious sedation was uneventful and vital signs were stable. Left Ventricle The left ventricle is normal size. There is normal LV segmental wall motion. There is normal left ventricular wall thickness. The left ventricular systolic function is normal. The left ventricular ejection fraction is within the normal range. LVEF is 55-60%. Right Ventricle The right ventricle is normal size. The right ventricular systolic function is normal. Atria Left atrium is dilated. The right atrium size is normal. Aortic Valve Aortic valve is calcified. No aortic regurgitation is present. There is no aortic valvular stenosis. Mitral Valve The mitral valve is normal in structure. Moderate mitral regurgitation. No evidence of mitral valve stenosis. Tricuspid Valve The tricuspid valve is normal in structure. There is no tricuspid valve regurgitation noted. Pulmonic Valve The pulmonary valve is normal in structure. There is no pulmonic valvular regurgitation. 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 <Conclusion> Atrial fibrillation/flutter at baseline Consent was obtained [facility] [address] [place] [address] TRANSESOPHAGEAL ECHOCARDIOGRAM Name: ELHAM CORTEZ Gildardo Room #: [facility]#: [id number] Admission: 04/30/21 Attend Phys: Elmer Leal, Discharge: Date of : 42 Report #: [id number] Timeout was performed After appropriate sedation esophageal probe was advanced without difficulty Left atrial appendage, moderate size no evidence of mass or clot detected Left atrium mildly dilated Normal left atrial size/wall thickness Ejection fraction 60% Aortic valve moderately calcified mild stenosis Moderate/central mitral valve insufficiency No tricuspid valve insufficiency No pericardial effusion 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
--- NOTE | 2021-04-30 12:49 | EKG ---
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: : 1940 Requested By: Kelechi López Order Number: [id number] MD: Kelechi López Measurements Intervals [place] Rate: 74 P: 0 [place]: 197 QRS: -13 QRSD: 87 T: 65 QT: 348 QTc: 386 Interpretive Statements Sinus rhythm Borderline T abnormalities, lateral leads Borderline ST elevation, anterior leads Compared to ECG 10/22/2018 12:43:36 T-wave abnormality now present ST (T wave) deviation now present Electronically Signed On 04-30-2021 12:49:08 [employer]ENDENT [employer]IVING INSTRU[employer] by Kelechi López [email or web address] <ELECTRONICALLY SIGNED> By: Kelechi López MD, [facility] 04/30/21 1249 1020 1020 Kelechi López MD, [facility] /EPI
== END | disposition home or self-care (01) ==
LOC: CATH 07:26
PROVIDERS: ATTEND Internal Medicine Cardiovascular Disease
DX: I48.92 Unspecified atrial flutter (principal); I48.91 Unspecified atrial fibrillation; I34.0 Nonrheumatic mitral (valve) insufficiency; I10 Essential (primary) hypertension; I25.10 Atherosclerotic heart disease of native coronary artery without angina pectoris; I87.2 Venous insufficiency (chronic) (peripheral); E11.9 Type 2 diabetes mellitus without complications; E78.5 Hyperlipidemia, unspecified; Z98.890 Other specified postprocedural states; Z79.899 Other long term (current) drug therapy; Z86.73 Personal history of transient ischemic attack (TIA), and cerebral infarction without residual deficits; Z79.01 Long term (current) use of anticoagulants